=== PATIENT | female | born 2000 | race Caucasian/White ===

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

== ENCOUNTER 2023-01-07 10:23 | Outpatient (CLI) | payer BC, OTHER, SELFPAY ==
--- NOTE | ~2023-01-07 | CT_ITS ---
EXAMINATION: CT abdomen pelvis wo con DATE: 01/07/2023 10:47 INDICATION: Abdominal pain TECHNIQUE: Computed tomography (CT) of the abdomen and pelvis was performed without intravenous contr ast. Automated exposure control and iterative reconstruction technique were employed. The dose-length product was 1458.62 mGy-cm. COMPARISON: CT abdomen and pelvis dated 03/16/2019 and chest dated 03/14/2019 FINDINGS: Incompletely visualized 12 x 7 mm nodular opacity with irregular margins in the right lower lobe. Hea rt size is normal. No pericardial or pleural effusion. Liver, gallbladder, spleen, pancreas, bilatera l adrenal glands and kidneys are normal. Bladder, anteverted uterus and bilateral adnexa are unremark able. Bowels including the appendix are normal. No free intraperitoneal gas or fluid. No pathological ly enlarged abdominal or pelvic lymphadenopathy. Bones are unremarkable. IMPRESSION: 1. No acute intra-abdominal/pelvic process. 2. Incompletely visualized at least 12 x 7 mm nodular opacity with irregular margins in right lower l obe. Recommend dedicated chest CT for further evaluation. Reviewed, dictated and finalized at location B. IMPRESSION: 1. No acute intra-abdominal/pelvic process. 2. Incompletely visualized at least 12 x 7 mm nodular opacity with irregular ma rgins in right lower lobe. Recommend dedicated chest CT for further evaluation.
== END 2023-01-07 10:24 | disposition home or self-care (01) ==
PROVIDERS: PCP Nurse Practitioner Family; Visit Provider Nurse Practitioner Family
DX: R10.9 Unspecified abdominal pain (principal); R11.2 Nausea with vomiting, unspecified
CPT/HCPCS: 74176

== ENCOUNTER 2023-12-31 14:52 | Emergency (ER) | payer BC, OTHER, SELFPAY ==
--- NOTE | ~2023-12-31 | CT_ITS ---
CT abdomen pelvis w con Ordering provider: Real Subramanian MD History: 23 years Female with . ab pain, n/v . Comparison: None. Technique: CT abdomen and pelvis with IV and without oral contrast. Automated exposure control and it erative reconstruction technique were employed. The dose-length product was 1486.02 mGy-cm. 100 mL Om nipaque 350 was given IV. Findings: VISUALIZED LOWER CHEST: Normal. UPPER ABDOMINAL ORGANS: Liver: Normal. Gallbladder: Normal. Spleen: Normal. Stomach/duodenum: Normal. Pancreas: Normal. Adrenals: Normal. Kidneys: Normal. PELVIC ORGANS: The bladder is only underfilled. BOWEL AND MESENTERY: Colon: Fluid is seen in the large bowel and in the terminal small bowel which is suggestive of diarrh ea. Enteritis cannot be excluded. No wall thickening is seen. Normal appendix. Small Bowel: Slight dilatation the distal small bowel. Peritoneum/mesentery: No free air or free fluid. No mesenteric lymphadenopathy. RETROPERITONEUM: Normal aorta. No retroperitoneal lymphadenopathy. MUSCULOSKELETAL: Superficial soft tissues: The superficial soft tissues are normal. Bones: Normal spine. IMPRESSION: 1. Fluid in the colon and distal small bowel suggestive of diarrhea. Enteritis cannot be excluded. C linical correlation advised. Reviewed, dictated and finalized at location A. IMPRESSION: 1. Fluid in the colon and distal small bowel suggestive of diarrhea. Enteritis cannot be excluded. Clinical correlation advised.
[2023-12-31 14:53] VITALS: BP 131/90; PULSE 154; RESP 16; TEMP 36.4; O2SAT 99
--- NOTE | 2023-12-31 14:56 | ECG_ITS ---
Test Date: 2023-12-31 15:01:53 Measurements Intervals [place] Rate: 142 P: 54 MS: 149 QRS: 72 QRSD: 86 T: 32 QT: 297 QTc: 457 Interpretive Statements SINUS TACHYCARDIA, NONSPECIFIC T-WAVE ABNORMALITY No previous ECG available for comparison Electronically Signed On 01-01-2024 11:44:49 CDT by Herbert Dickinson M.D.
[2023-12-31 15:18] LABS: Basophils Absolute Auto 0.1 K/mm3 (0.0-0.1); Basophils Percent Auto 0.5 % (0.2-1.2); Eosinophils Absolute Auto 0.4 K/mm3 (0-0.3); Eosinophils Percent Auto 1.5 % (0-4.4); Hematocrit 45.8 % (37.0-47.0); Hemoglobin 15.4 g/dL (12.0-15.0); Immature Granulocyte Percent A 0.4 % (0-0.5); Lymphocytes Absolute Auto 3.02 K/mm3 (0.9-3.2); Lymphocytes Percent Auto 12.2 % (18.3-44.2); Mean Corpuscular HGB Conc 33.6 g/dl (32-36); Mean Corpuscular Hemoglobin 26.7 pg (26-34); Mean Corpuscular Volume 79.4 fl (80-100); Monocytes Absolute Auto 1.5 K/mm3 (0.1-0.6); Monocytes Percent Auto 6.1 % (2.6-8.5); Neutrophils Absolute Auto 19.7 K/mm3 (1.3-6.7); Neutrophils Percent Auto 79.3 % (45.5-73.1); Platelet Count Result 479 k/mm3 (150-375); Red Blood Count 5.77 M/mm3 (4.2-5.4); Red Cell Distribution Width 13.5 % (11.5-14.5); White Blood Count 24.8 K/mm3 (4.5-10.0)
[2023-12-31 15:30] LABS: Alanine Aminotransferase 49 U/L (6-35); Albumin Level 5.1 g/dL (3.5-5.1); Alkaline Phosphatase 142 U/L (38-126); Anion Gap 15 mmol/L (4-12); Aspartate Amino Transferase 32 U/L (14-36); Bilirubin,Total 0.5 mg/dL (0.2-1.3); Blood Urea Nitrogen 9 mg/dL (7-17); Calcium 9.9 mg/dL (8.4-10.2); Carbon Dioxide 18 mmol/L (22-30); Chloride 110 mmol/L (98-107); Estimated CRCL calculation 124 ml/min; Estimated Glomerular Filt Rate > 60; Glucose 111 mg/dL (65-110); Lipase 122 U/L (23-300); Potassium 3.2 mmol/L (3.4-5.0); Sodium 143 mmol/L (137-145)
[2023-12-31] MEDS: SODIUM CHLORIDE 0.9% IV 1,000 ML 999 ML IV CONT ×2 (15:58)
[2023-12-31] MEDS: ONDANSETRON INJ 4 MG/2 ML VIAL IV PUSH (15:58)
--- NOTE | 2023-12-31 16:00 | ED.GENADULT ---
HPI - General Adult General Chief complaint: Nausea/Vomiting/Diarrhea Stated complaint: nvd Time Seen by Provider: 12/31/23 15:37 History of Present Illness HPI narrative: 23-year-old female present to the emergency department for evaluation for nausea vomiting and abdominal pain. Patient states just prior to arrival she had onset of nausea vomiting abdominal pain with associated diarrhea. Upon arrival emergency department patient's heart rate was in the 150s. Patient denies any medication changes. Patient states she does have a diagnosis of RUDY negative lupus with patient does not have a food sampler patient is not take any medications for this. Related Data Allergies Allergy/AdvReac Type Severity Reaction Status Date / Time No Known Allergies Allergy Verified 12/31/23 15:51 Review of Systems Review of Systems: All systems reviewed & are unremarkable except as noted in HPI and below Exam Narrative: APPEARANCE: No distress HEAD: normocephalic, atraumatic. EYES: PERRLA/EOMI, conjunctivae clear. NOSE: Normal no drainage EARS:TMS clear with good light reflex. THROAT: Pharynx clear, no exudate. NECK: Supple. No adenopathy, no masses. RESPIRATORY: Airway patent, respirations nonlabored. Clear to auscultation bilaterally, no rales, rhonchi, wheezing. CARDIOVASCULAR: Regular rate and rhythm without murmurs rubs or gallops. ABDOMINAL: Soft, nontender, nondistended, normal bowel sounds MUSCULOSKELETAL: Moves all extremities. Strength/ROM intact, No edema, No calf tenderness. NEURO: Alert. Cranial nerves II through XII intact. Grossly intact SKIN: Warm, dry. Normal Color Course Course Emergency Course: Patient felt improved with treatment patient was discharged to home Vital Signs Vital signs: Vital Signs Temperature 97.6 F 12/31/23 14:53 Pulse Rate 154 H 12/31/23 14:53 Respiratory Rate 16 12/31/23 14:53 Blood Pressure 131/90 12/31/23 14:53 Pulse Oximetry 99 12/31/23 14:53 Oxygen Delivery Room Air 12/31/23 14:53 Temperature 97.6 F 12/31/23 14:53 Pulse Rate 94 12/31/23 18:51 Respiratory Rate 15 12/31/23 18:51 Blood Pressure 132/85 12/31/23 18:51 Pulse Oximetry 99 12/31/23 18:51 Oxygen Delivery Room Air 12/31/23 14:53 Medical Decision Making [facility] Narrative Medical decision making narrative: 23-year-old female presenting emergency department for evaluation for persistent nausea and vomit. Patient was tachycardic upon arrival emergency department but this was significantly improved with rehydration. Patient was afebrile but does have a leukocytosis of 24.8. Some of this may be reactive. Patient's hemoglobin was 15.4. Patient was mildly hypokalemic and this was replaced with oral potassium. UA did have white blood cells and squamous cells but nitrate negative and patient is not having urinary symptoms. Patient was negative for influenza RSV and for COVID. CT scan did show evidence of a diarrhea illness but no other underlying evidence of infection Differential Diagnosis Differential Diagnosis: Colitis, diverticulitis, gastroenteritis, appendicitis, urinary tract infection, dehydration, heat exhaustion Vital Signs Vital Signs: Vital Signs Temperature 97.6 F 12/31/23 14:53 Pulse Rate 154 H 12/31/23 14:53 Respiratory Rate 16 12/31/23 14:53 Blood Pressure 131/90 12/31/23 14:53 Pulse Oximetry 99 12/31/23 14:53 Oxygen Delivery Room Air 12/31/23 14:53 Temperature 97.6 F 12/31/23 14:53 Pulse Rate 94 12/31/23 18:51 Respiratory Rate 15 12/31/23 18:51 Blood Pressure 132/85 12/31/23 18:51 Pulse Oximetry 99 12/31/23 18:51 Oxygen Delivery Room Air 12/31/23 14:53 Lab Data Lab results reviewed: Yes I reviewed the patient's lab results. 12/31/23 15:10 12/31/23 15:10 Labs: Lab Results 12/31/23 12/31/23 12/31/23 Range/Units 15:10 15:50 17:10 WBC 24.8 H (4.5-10.0) K/mm3 RBC 5.77 H
[2023-12-31 16:05] LABS: Magnesium 1.9 mg/dL (1.6-2.3)
--- NOTE | 2023-12-31 16:08 | PC.NURSE ---
pt to ct scan via stretcher at this time, fluids infusing
[2023-12-31 16:37] LABS: Influenza A QL RT-PCR Negative (Negative); Influenza B QL RT-PCR Negative (Negative); RSV RNA, RT-PCR Negative (Negative); SARS-CoV-2 RNA PCR Negative (Negative)
[2023-12-31 17:02] VITALS: BP 135/82; PULSE 106; RESP 15; O2SAT 97
[2023-12-31] MEDS: POTASSIUM CHLORIDE 20 MEQ PACKET (FOR LIQUID) 40 MEQ PO (17:02)
[2023-12-31 17:27] LABS: Appearance Urine Clear (Clear); Bacteria Urine Rare /hpf; Bilirubin Urine Negative (Negative); Blood Urine Negative (Negative); Color Urine Yellow (Yellow); Glucose Urine UA Negative (Negative); Ketones Urine 1+ mg/dL (Negative); Leukocyte Esterase Ur Trace LEU/UL (Negative); Need Manual Microscopic Reviewed; Nitrate Urine Negative (Negative); Non Pathogenic Casts 0-2; Protein Urine Negative (Negative); Squamous Epithelial Cell Urine Occasional /hpf (Few); Urobilinogen Urine 0.2 mg/dL (<2.0); WBC Urine 21-50 /hpf (0-3)
[2023-12-31 17:36] LABS: Specific Grav Ur < 1.005 (1.001-1.035)
[2023-12-31 17:37] LABS: Add Urine Microscopic? YES
[2023-12-31 18:51] VITALS: BP 132/85; PULSE 94; RESP 15; O2SAT 99
== END 2023-12-31 18:52 | disposition home or self-care (01) ==
PROVIDERS: Emergency Provider Emergency Medicine; PCP Nurse Practitioner Family
DX: R11.2 Nausea with vomiting, unspecified (principal); Z20.822 Contact with and (suspected) exposure to COVID-19
CPT/HCPCS: 36415; 74177; 80053; 81001; 81025; 83690; 83735; 85025; 87086; 87088; 87637; 93005; 96361; 96374; 99284; A9270; J2405; J7030; Q9967